=== PATIENT | male | born 1945 | race Caucasian/White ===

== ENCOUNTER → 2017-03-17 | Outpatient (REF) | payer MEDICARE, OTHER ==
[~2017-03-17] MED LIST: CO Q100C10 PO; COUM1TAB17 PO; COUM2.5T11 PO; FISH100049 PO; FLOM5CAP PO; GLUC250C5 PO; IBUPROPHEN PO; MULTTAB PO; OMEPRAZOL PO; SAW500CA9 PO; TOBRADEX OU; TYLE325T5 PO; ULTR50TA PO; VITAMIN C PO; VITAMIN D 3 PO; ZOCOR PO; [UNRECOGNIZED DRUG - CODE] PO
[2017-03-17 20:28] LABS: ALBUMIN 3.9 GM/DL (3.2-5.2); ALKALINE PHOSPHATASE 57 U/L (45-117); ALT/SGPT 30 U/L (12-78); ANION GAP 9 MEQ/L (8-16); AST/SGOT 20 U/L (15-37); BILIRUBIN,TOTAL 0.5 MG/DL (0.2-1.0); BLOOD UREA NITROGEN 26 MG/DL (7-18); CALCIUM LEVEL 8.3 MG/DL (8.8-10.2); CARBON DIOXIDE LEVEL 28 MEQ/L (21-32); CHLORIDE LEVEL 103 MEQ/L (98-107); CHOLESTEROL LEVEL 194 MG/DL (<200); CREATININE FOR GFR 0.93 MG/DL (0.70-1.30); GLOMERULAR FILTRATION RATE > 60.0 (>49); GLUCOSE, FASTING 93 MG/DL (80-110); POTASSIUM SERUM 4.3 MEQ/L (3.5-5.1); SODIUM LEVEL 140 MEQ/L (136-145); TOTAL PROTEIN 6.9 GM/DL (6.4-8.2); TRIGLYCERIDES LEVEL 75 MG/DL (<150)
== END ==
LOC: M SFHCCLAY 09:45
PROVIDERS: ATTEND Family Medicine
DX: N20.0 Calculus of kidney (principal); E78.5 Hyperlipidemia, unspecified; Z11.59 Encounter for screening for other viral diseases

== ENCOUNTER → 2019-04-22 | Outpatient (REF) | payer MEDICARE, OTHER ==
[~2019-04-22] MED LIST changes: -COUM2.5T11 PO; +COUM2.5T17 PO; +FLOM0.4C39 PO; -FLOM5CAP PO; -ULTR50TA PO; +ULTR50TA8 PO
[2019-04-22 17:09] LABS: BASO % 0.9 % (0.0-1.0); EOS # 0.1 10^3/uL (0.0-0.50); EOS % 3.1 % (0.0-3.0); HEMATOCRIT 43.6 % (42.0-52.0); HEMOGLOBIN 14.8 g/dl (13.5-17.5); LYMPH # 1.2 10^3/uL (1.5-4.5); LYMPH % 25.7 % (24.0-44.0); MEAN CORPUSCULAR HEMOGLOBIN 31.9 pg (27.0-33.0); MEAN CORPUSCULAR HGB CONC 33.9 g/dl (32.0-36.5); MONO # 0.5 10^3/uL (0.0-0.8); MONO % 10.6 % (0.0-5.0); NEUTROPHILS # 2.7 10^3/uL (1.8-7.7); NEUTROPHILS % 59.7 % (36.0-66.0); PLATELET COUNT, AUTOMATED 169 10^3/uL (150-450); RED BLOOD COUNT 4.64 10^6/uL (4.30-6.10); WHITE BLOOD COUNT 4.5 10^3/uL (4.0-10.0)
[2019-04-22 17:18] LABS: THYROID STIMULATING HORMONE 3.21 uIU/ML (0.358-3.740); TOTAL T3 102.4 NG/DL (60.0-181.0)
== END ==
LOC: M SFHCCLAY 11:01
PROVIDERS: ATTEND Family Medicine
DX: G25.81 Restless legs syndrome (principal); R53.83 Other fatigue
CPT/HCPCS: 83540; 84443; 84480; 85025; G0463

== ENCOUNTER → 2020-04-24 | Outpatient (CLI) | payer MEDICARE, BC, OTHER ==
--- NOTE | 2020-04-24 12:23 | REP ---
LEFT HIP: Two views. HISTORY: Left hip pain. FINDINGS: AP and frog-leg views of the left hip demonstrate what appear to be hernia repair metallic fasteners in the suprapubic region bilaterally. The femoral head is smooth and rounded and hip joint spaces preserved. There is mild superior acetabular spurring. No erosive changes are seen. 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 Otherwise negative. Electronically Signed by Angel Escalante MD 04/24/2020 12:32 P
== END ==
LOC: M CLY 11:36
PROVIDERS: ATTEND Family Medicine
DX: M16.12 Unilateral primary osteoarthritis, left hip (principal); M25.552 Pain in left hip
CPT/HCPCS: 73502; G0463

== ENCOUNTER → 2021-04-22 | Outpatient (REF) | payer MEDICARE, OTHER ==
[2021-04-22 18:59] LABS: ALBUMIN 3.8 GM/DL (3.2-5.2); ALT/SGPT 35 U/L (12-78); BILIRUBIN,TOTAL 0.8 MG/DL (0.2-1.0); BLOOD UREA NITROGEN 30 MG/DL (7-18); CALCIUM LEVEL 9.3 MG/DL (8.8-10.2); CARBON DIOXIDE LEVEL 31 MEQ/L (21-32); CHLORIDE LEVEL 104 MEQ/L (98-107); CHOLESTEROL LEVEL 193 MG/DL (<200); CHOLESTEROL RISK RATIO 2.838 (<5); CREATININE FOR GFR 0.78 MG/DL (0.70-1.30); GLOMERULAR FILTRATION RATE > 60.0 (>42); GLUCOSE, FASTING 82 MG/DL (70-100); HDL CHOLESTEROL 68 MG/DL (>40); LDL CHOLESTEROL 113 MG/DL (<100); MAGNESIUM LEVEL 2.2 MG/DL (1.8-2.4); NON-HDL-C 125 MG/DL; POTASSIUM SERUM 4.4 MEQ/L (3.5-5.1); SODIUM LEVEL 139 MEQ/L (136-145); TOTAL PROTEIN 6.9 GM/DL (6.4-8.2); TRIGLYCERIDES LEVEL 62 MG/DL (<150)
== END ==
LOC: M SFHCCLAY 13:38
PROVIDERS: ATTEND Family Medicine
DX: E78.5 Hyperlipidemia, unspecified (principal); K21.9 Gastro-esophageal reflux disease without esophagitis
CPT/HCPCS: 80053; 80061; 83735; G0463

== ENCOUNTER → 2022-01-27 | Outpatient (CLI) | payer MEDICARE, BC, OTHER | LOC: M LABSMTC 11:40 | PROVIDERS: ATTEND Neurological Surgery | DX: M43.17 Spondylolisthesis, lumbosacral region (principal); M48.061 Spinal stenosis, lumbar region without neurogenic claudication ==

== ENCOUNTER → 2022-03-27 | Outpatient (CLI) | payer MEDICARE, BC, OTHER ==
[~2022-03-27] MED LIST changes: +ATOR1TAB19 PO; +BIMA01SOL OS; +COLA100C5 PO; +ERTA1INJ3 IV; +FLEEENE12 PR; +LIDO5DIS41 TOP; +LIDOCAINE 1% MDV 20ML VIAL As Ordered ONE; +LOVE1INJ SC; +MILKSUS3 PO; +MIRA3350 PO; +NYST1POW9 TOP; +ONDA-83 PO; +OXYC1CAP PO; +PROT20TA11 PO; +ROPI0.253 PO; +SENN-80 PO; +THIA100TA PO; +TIZA4CAP PO; +TOBRSUS41 OD
[2022-03-27 14:38] VITALS: BP 118/63
== END ==
LOC: M IRPRO 13:41
PROVIDERS: ATTEND Physician Assistant
DX: T81.49XA Infection following a procedure, other surgical site, initial encounter (principal)
CPT/HCPCS: 36571; 76937; C1751; J1642; J1644

== ENCOUNTER → 2023-09-22 | Outpatient (CLI) | payer MEDICARE, OTHER ==
[~2023-09-22] MED LIST changes: -LIDOCAINE 1% MDV 20ML VIAL As Ordered ONE; -ROPI0.253 PO; +ROPI5TAB19 PO; +SENN-186 PO; -SENN-80 PO
== END ==
LOC: M CLY 14:38
PROVIDERS: ATTEND Family Medicine
DX: M25.551 Pain in right hip (principal); M17.11 Unilateral primary osteoarthritis, right knee; M11.261 Other chondrocalcinosis, right knee

== ENCOUNTER → 2023-09-22 | Outpatient (REF) | payer MEDICARE, OTHER ==
[2023-09-22 17:29] LABS: HEMATOCRIT 43.3 % (42.0-52.0); HEMOGLOBIN 14.6 g/dl (13.5-17.5); MEAN CORPUSCULAR HEMOGLOBIN 31.5 pg (27.0-33.0); MEAN CORPUSCULAR HGB CONC 33.7 g/dl (32.0-36.5); MEAN CORPUSCULAR VOLUME 93.5 fl (80.0-96.0); PLATELET COUNT, AUTOMATED 190 10^3/uL (150-450); RED BLOOD COUNT 4.63 10^6/uL (4.30-6.10); WHITE BLOOD COUNT 5.6 10^3/uL (4.0-10.0)
[2023-09-22 17:55] LABS: IRON (FE) 79 UG/DL (65-175)
[2023-09-22 17:57] LABS: ALBUMIN 3.9 G/DL (3.2-5.2); ALKALINE PHOSPHATASE 87 U/L (46-116); ALT/SGPT 28 U/L (7.0-40); AST/SGOT 26 U/L (<34); BILIRUBIN,TOTAL 0.5 MG/DL (0.3-1.2); BLOOD UREA NITROGEN 24 MG/DL (9-23); CARBON DIOXIDE LEVEL 30 MMOL/L (20-31); CHLORIDE LEVEL 102 MMOL/L (98-107); CHOLESTEROL LEVEL 220 MG/DL (<200); CHOLESTEROL RISK RATIO 3.52 (<5); CREATININE FOR GFR 0.82 MG/DL (0.70-1.30); GLOMERULAR FILTRATION RATE > 60.0 (>42); GLUCOSE, FASTING 84 MG/DL (74-106); HDL CHOLESTEROL 62.4 MG/DL (>40); NON-HDL-C 157.6 MG/DL; POTASSIUM SERUM 4.5 MMOL/L (3.5-5.1); SODIUM LEVEL 138 MMOL/L (136-145); TOTAL PROTEIN 6.9 G/DL (5.7-8.2); TRIGLYCERIDES LEVEL 228 MG/DL (<150)
== END ==
LOC: M SFHCCLAY 14:12
PROVIDERS: ATTEND Family Medicine
DX: E78.5 Hyperlipidemia, unspecified (principal); D50.9 Iron deficiency anemia, unspecified

== ENCOUNTER → 2025-01-12 | Outpatient (CLI) | payer MEDICARE, BC ==
[~2025-01-12] MED LIST changes: +CIDE250T PO; +COQ150CH PO; +FERROCITE PO; +FLOR250C PO; +FLUTISP; +FURO20TA2 PO; +MELO15TA28 PO; +MULTTAB61 PO; +NYST1POW3 TOP; -NYST1POW9 TOP; +OMEP-173 PO; -OXYC1CAP PO; +OXYC1CAP2 PO; +POTA-151 PO; +SIMV20TA22 PO; +TADA5TAB94 PO; +VITA100093 PO; +VITA500C24 PO
== END ==
LOC: M CLY 14:55
PROVIDERS: ATTEND Family Medicine
DX: M51.370 Other intervertebral disc degeneration, lumbosacral region with discogenic back pain only (principal)

== ENCOUNTER → 2025-01-12 | Outpatient (CLI) | payer MEDICARE, BC | LOC: M CLY 14:33 | PROVIDERS: ATTEND Family Medicine | DX: M51.370 Other intervertebral disc degeneration, lumbosacral region with discogenic back pain only (principal); Z53.9 Procedure and treatment not carried out, unspecified reason ==

== ENCOUNTER 2025-01-20 07:34 | Day surgery (SDC) | payer MEDICARE, BC ==
[~2025-01-20] VITALS: Ht 180.3 cm; Wt 97.5 kg
[2025-01-20] MEDS ORDERED: LR 1,000 ML IV SCH (07:35)
[2025-01-20] MEDS: LIDOCAINE 2% MDV 20ML VIAL As Ordered ONE (09:30)
[2025-01-20] MEDS: ceFAZolin SOD 2 GM IV ONCE IV ONE (09:32)
[2025-01-20] MEDS ORDERED: ONDANSETRON 4MG 2ML VIAL As Ordered ONE (09:38)
[2025-01-20] MEDS ORDERED: LIDOCAINE 2% 100MG/5ML SDV (FOR ANES.) As Ordered ONE (09:38)
[2025-01-20] MEDS ORDERED: ePHEDrine SULFATE 25 MG/5 ML(5MG/ML) SYRINGE As Ordered ONE (09:38)
[2025-01-20] MEDS ORDERED: propofoL 200 MG/20 ML VIAL As Ordered ONE (09:38)
[2025-01-20] MEDS ORDERED: fentaNYL 100 MCG/2 ML INJECTION As Ordered ONE (09:38)
[2025-01-20] MEDS ORDERED: MIDAZOLAM INJ 2MG/2ML VIAL As Ordered ONE (09:38)
[2025-01-20] MEDS ORDERED: GLYCOPYRROLATE INJ 0.2 MG/ML 2 ML VIAL As Ordered ONE (09:40)
[2025-01-20] MEDS ORDERED: ACETAMINOPHEN 1000MG/100ML IV BAG As Ordered ONE (10:07)
[2025-01-20] MEDS ORDERED: ONDANSETRON 4MG 2ML VIAL IV PRN (11:25)
[2025-01-20] MEDS ORDERED: MORPHINE 2 MG/ML 1ML VIAL IV PRN (11:25)
[2025-01-20] MEDS ORDERED: fentaNYL 100 MCG/2 ML INJECTION IV PRN (11:25)
[2025-01-20] MEDS: oxyCODONE 5MG TAB PO PRN (11:39)
[2025-01-20 12:02] VITALS: BP 115/78; TEMP 98; O2SAT 96
== END 2025-01-20 13:00 | disposition home or self-care (01) ==
LOC: M SDC 07:34
PROVIDERS: ATTEND Podiatrist
DX: M20.42 Other hammer toe(s) (acquired), left foot (principal); M20.5X2 Other deformities of toe(s) (acquired), left foot; M21.622 Bunionette of left foot; G47.30 Sleep apnea, unspecified; Z79.899 Other long term (current) drug therapy
CPT/HCPCS: 28110; 28285; 28308; 73630; 76000; 88300; 97116; 97161; C1713; J0131; J0665; J0690; J1100; J1596; J2250; J2405; J3010

== ENCOUNTER → 2025-10-13 | Outpatient (CLI) | payer MEDICARE, BC ==
[~2025-10-13] MED LIST changes: -FLOM0.4C39 PO; +LIDO1ADH93 TOP; -LIDO5DIS41 TOP; +TADA5TAB2 PO; -TADA5TAB94 PO; +TAMS-18 PO
== END ==
LOC: M SLEEP HO 12:24
PROVIDERS: ATTEND Family Medicine
DX: G47.33 Obstructive sleep apnea (adult) (pediatric) (principal)